=== PATIENT | male | born 1980 ===

== ENCOUNTER 2020-01-16 14:13 | Observation (INO) ==
[2020-01-16] MEDS ORDERED: DEXTROSE 10% 250 ML BAG IV PRN ×2 (15:27)
[2020-01-16] MEDS ORDERED: ACETAMINOPHEN 325 MG TABLET PO PRN (15:27)
[2020-01-16] MEDS ORDERED: GLUCAGON 1 MG VIAL IM PRN (15:27)
[2020-01-16] MEDS ORDERED: ONDANSETRON 4 MG/2 ML VIAL IV PRN (15:27)
[2020-01-16 15:50] LABS: Basophils # 0.1 10*3/uL (0.0-0.2); Basophils % 0.8 % (0.0-0.8); Eosinophils # 0.3 10*3/uL (0.0-0.87); Eosinophils % 3.2 % (0.00-10.9); Hematocrit 37.1 VOL% (42.0-52.0); Hemoglobin 12.2 GM/DL (14.0-18.0); Immature Granulocytes % 0.4 %; Immature Granulocytes Absolute 0.04 #; Lymphocytes # 2.1 10*3/uL (1.4-4.0); Lymphocytes % 22.3 % (21.2-54.2); Mean Corpuscular HGB Conc 32.9 GM/DL (32-36); Mean Corpuscular Volume 90.7 FL (87-102); Monocytes % 5.1 % (1.7-12.7); Neutrophils % 68.2 % (38.7-73.9); Platelet Count 226 T/CUMM (130-400); Red Blood Count 4.09 MC/CUMM (3.8-5.5); Red Cell Distribution Width 13.2 % (9.3-17.3); White Blood Count 9.2 T/CUMM (4-12)
[2020-01-16 16:10] LABS: Calcium 7.9 MG/DL (8.5-10.1); Osmolality,Calculated 277.2 MOS/KG (273-304)
[2020-01-16] MEDS: INSULIN REGULAR 100 UNIT/ML SUBCUT SCH ×2 (18:06→20:36)
[2020-01-17 07:00] LABS: Basophils # 0.1 10*3/uL (0.0-0.2); Basophils % 0.9 % (0.0-0.8); Eosinophils # 0.3 10*3/uL (0.0-0.87); Eosinophils % 2.9 % (0.00-10.9); Hematocrit 38.1 VOL% (42.0-52.0); Hemoglobin 12.8 GM/DL (14.0-18.0); Immature Granulocytes % 0.4 %; Immature Granulocytes Absolute 0.05 #; Lymphocytes # 2.5 10*3/uL (1.4-4.0); Lymphocytes % 22.2 % (21.2-54.2); Mean Corpuscular HGB Conc 33.6 GM/DL (32-36); Mean Corpuscular Volume 89.6 FL (87-102); Mean Platelet Volume 10.8 FL (9.6-12.0); Monocytes % 4.6 % (1.7-12.7); Platelet Count 248 T/CUMM (130-400); Red Blood Count 4.25 MC/CUMM (3.8-5.5); Red Cell Distribution Width 13.3 % (9.3-17.3); White Blood Count 11.4 T/CUMM (4-12)
[2020-01-17] MEDS ORDERED: LIDOCAINE 1%/EPI INJ 20 ML VIAL ONE (07:18)
[2020-01-17] MEDS ORDERED: HEPARIN 5,000 UNIT/1 ML VIAL ONE ×2 (07:18→09:18)
[2020-01-17] MEDS ORDERED: BUPIVACAINE MPF 0.25% 30 ML VIAL ONE (07:18)
[2020-01-17 07:40] LABS: Calcium 8.2 MG/DL (8.5-10.1); Osmolality,Calculated 278.1 MOS/KG (273-304)
[2020-01-17] MEDS ORDERED: CLINDAMYCIN INJ 900 MG in PREMIX 1 EACH IV ONE (08:23)
[2020-01-17] MEDS: INSULIN REGULAR 100 UNIT/ML SUBCUT SCH ×3 (08:45→18:09)
[2020-01-17] MEDS ORDERED: PANTOPRAZOLE 40 MG TABLET PO SCH (09:00)
[2020-01-17] MEDS ORDERED: TISSUE ADHESIVE 1 EACH APPLICATOR TOP ONE (10:19)
[2020-01-17] MEDS ORDERED: MEPERIDINE 25 MG/1 ML VIAL ONE (10:39)
[2020-01-17] MEDS ORDERED: ONDANSETRON 4 MG/2 ML VIAL ONE (10:39)
[2020-01-17] MEDS ORDERED: ONDANSETRON 4 MG/2 ML VIAL IV PRN (10:46)
[2020-01-17] MEDS ORDERED: MEPERIDINE 25 MG/1 ML VIAL IV PRN (10:46)
[2020-01-17] MEDS ORDERED: LOPERAMIDE 2 MG CAPSULE PO ONE (11:48)
[2020-01-17] MEDS ORDERED: LOPERAMIDE 2 MG CAPSULE PO PRN (12:10)
[2020-01-17] MEDS ORDERED: MIDAZOLAM 2 MG/2 ML VIAL ONE (12:26)
[2020-01-17] MEDS ORDERED: fentaNYL 100 MCG/2 ML VIAL ONE (12:26)
[2020-01-17] MEDS ORDERED: KETAMINE 500 MG/10 ML VIAL ONE (12:26)
[2020-01-17] MEDS ORDERED: SODIUM CHLORIDE 0.9% 250 ML IV ONE (12:27)
[2020-01-17] MEDS ORDERED: HEPARIN 10,000 UNIT/10 ML VIAL IV SCH (13:00)
[2020-01-17] MEDS ORDERED: SEVELAMER CARBONATE 800 MG TABLET PO SCH (16:30)
[2020-01-17 20:04] VITALS: BP 146/92
[2020-01-17] MEDS ORDERED: METOPROLOL TARTRATE 50 MG TABLET PO SCH (21:00)
[2020-01-17] MEDS ORDERED: GABAPENTIN 300 MG CAPSULE PO SCH (21:00)
[2020-01-18] MEDS ORDERED: lisinopriL 10 MG TABLET PO SCH (09:00)
[2020-01-18] MEDS ORDERED: calcitrioL 0.25 MCG CAPSULE PO SCH (09:00)
[2020-01-18] MEDS ORDERED: amLODIPine 10 MG TABLET PO SCH (09:00)
== END 2020-01-17 20:10 | disposition home or self-care (01) ==
LOC: N.ED 14:13 → N.EDINP 14:13 → SUATTDRO 15:27 → N.EDINP 16:11 → N.3E 16:27
PROVIDERS: ADMIT Internal Medicine; ATTEND Internal Medicine

== ENCOUNTER 2021-03-21 17:07 | Inpatient (IN) ==
[2021-03-21 18:07] LABS: Basophils # 0.1 10*3/uL (0.0-0.2); Basophils % 0.4 % (0.0-0.8); Hematocrit 38.1 VOL% (42.0-52.0); Hemoglobin 11.9 GM/DL (14.0-18.0); Immature Granulocytes % 1.1 %; Immature Granulocytes Absolute 0.14 #; Lymphocytes # 1.1 10*3/uL (1.4-4.0); Lymphocytes % 8.7 % (21.2-54.2); Mean Corpuscular HGB Conc 31.2 GM/DL (32-36); Mean Corpuscular Volume 95.5 FL (87-102); Mean Platelet Volume 10.6 FL (9.6-12.0); Monocytes % 5.3 % (1.7-12.7); NRBC # 0.07 10*3/uL; Neutrophils % 84.5 % (38.7-73.9); Platelet Count 295 T/CUMM (130-400); Red Blood Count 3.99 MC/CUMM (3.8-5.5); Red Cell Distribution Width 16.2 % (9.3-17.3); White Blood Count 12.9 T/CUMM (4-12)
[2021-03-21 18:50] LABS: Calcium 9.9 MG/DL (8.5-10.1); Osmolality,Calculated 291.4 MOS/KG (273-304)
[2021-03-21 18:55] LABS: Potassium 6.4 MMOL/L (3.5-5.1)
[2021-03-21] MEDS ORDERED: DOCUSATE SODIUM 100 MG CAPSULE PO PRN (19:56)
[2021-03-21] MEDS ORDERED: ONDANSETRON 4 MG/2 ML VIAL IV PRN (19:56)
[2021-03-21] MEDS ORDERED: DEXTROSE 50% 25 GM/50 ML VIAL IV PRN (19:56)
[2021-03-21] MEDS ORDERED: GLUCAGON 1 MG VIAL IM PRN (19:56)
[2021-03-21] MEDS ORDERED: ACETAMINOPHEN 325 MG TABLET PO PRN (19:56)
[2021-03-21] MEDS ORDERED: NICOTINE 21 MG/24 HR PATCH TRANSDERM PRN (19:56)
[2021-03-21] MEDS: INSULIN REGULAR 100 UNIT/ML SUBCUT SCH (22:31)
[2021-03-21] MEDS: HEPARIN 5,000 UNIT/1 ML VIAL SUBCUT SCH (22:31)
[2021-03-22] MEDS: MORPHINE 2 MG/1 ML SYRINGE IV PRN (01:33)
[2021-03-22 07:13] LABS: Calcium 9.2 MG/DL (8.5-10.1); Osmolality,Calculated 281.4 MOS/KG (273-304); Potassium 4.3 MMOL/L (3.5-5.1)
[2021-03-22] MEDS: HEPARIN 5,000 UNIT/1 ML VIAL SUBCUT SCH ×2 (08:34→20:27)
[2021-03-22] MEDS: PANTOPRAZOLE 40 MG TABLET PO SCH (08:34)
[2021-03-22] MEDS: INSULIN REGULAR 100 UNIT/ML SUBCUT SCH ×4 (11:34→20:27)
[2021-03-23 05:48] LABS: Basophils % 0.3 % (0.0-0.8); Eosinophils % 0.4 % (0.00-10.9); Hematocrit 33.8 VOL% (42.0-52.0); Immature Granulocytes % 0.7 %; Immature Granulocytes Absolute 0.07 #; Lymphocytes # 1.6 10*3/uL (1.4-4.0); Lymphocytes % 16.2 % (21.2-54.2); Mean Corpuscular HGB Conc 32.5 GM/DL (32-36); Mean Corpuscular Volume 92.1 FL (87-102); Mean Platelet Volume 10.6 FL (9.6-12.0); Monocytes % 9.5 % (1.7-12.7); NRBC # 0.05 10*3/uL; Neutrophils % 72.9 % (38.7-73.9); Platelet Count 267 T/CUMM (130-400); Red Blood Count 3.67 MC/CUMM (3.8-5.5); Red Cell Distribution Width 16.5 % (9.3-17.3)
[2021-03-23 06:39] LABS: Calcium 8.9 MG/DL (8.5-10.1); Osmolality,Calculated 281.1 MOS/KG (273-304); Potassium 3.9 MMOL/L (3.5-5.1)
[2021-03-23] MEDS: INSULIN REGULAR 100 UNIT/ML SUBCUT SCH ×4 (07:33→20:04)
[2021-03-23] MEDS: HEPARIN 5,000 UNIT/1 ML VIAL SUBCUT SCH ×2 (09:15→20:48)
[2021-03-23] MEDS: PANTOPRAZOLE 40 MG TABLET PO SCH (09:16)
[2021-03-23] MEDS: LOPERAMIDE 2 MG CAPSULE PO PRN (12:36)
[2021-03-23 12:59] LABS: PT Patient Result 11.3 SECS (10.5-12.0)
[2021-03-23] MEDS: MORPHINE 2 MG/1 ML SYRINGE IV PRN ×2 (13:44→20:48)
[2021-03-23] MEDS ORDERED: DEXTROSE 50% 25 GM/50 ML VIAL IV PRN (14:32)
[2021-03-24] MEDS: MORPHINE 2 MG/1 ML SYRINGE IV PRN ×5 (00:18→19:44)
[2021-03-24] MEDS: INSULIN REGULAR 100 UNIT/ML SUBCUT SCH ×4 (08:16→21:52)
[2021-03-24] MEDS: PANTOPRAZOLE 40 MG TABLET PO SCH (08:16)
[2021-03-24] MEDS: HEPARIN 5,000 UNIT/1 ML VIAL SUBCUT SCH ×2 (08:16→21:51)
[2021-03-24] MEDS ORDERED: MIDAZOLAM 2 MG/2 ML VIAL IV ONE (09:00)
[2021-03-24] MEDS ORDERED: SODIUM CHLORIDE 0.45% 1,000 ML IV SCH (09:00)
[2021-03-24] MEDS ORDERED: HEPARIN/NACL 0.9% 2 UNITS/ML 4,000 UNIT/2,000 ML BAG IV ONE (14:14)
[2021-03-24] MEDS ORDERED: fentaNYL 100 MCG/2 ML VIAL ONE (14:21)
[2021-03-24] MEDS ORDERED: fentaNYL 100 MCG/2 ML VIAL IV ONE (15:42)
[2021-03-24] MEDS ORDERED: DIAZEPAM 5 MG TABLET PO ONE (15:42)
[2021-03-24] MEDS: hydrALAZINE 20 MG/1 ML VIAL IV PRN (16:20)
[2021-03-25] MEDS: MORPHINE 2 MG/1 ML SYRINGE IV PRN ×3 (00:09→08:22)
[2021-03-25] MEDS: HEPARIN 5,000 UNIT/1 ML VIAL SUBCUT SCH (08:21)
[2021-03-25] MEDS: PANTOPRAZOLE 40 MG TABLET PO SCH (08:21)
[2021-03-25] MEDS ORDERED: CLINDAMYCIN INJ 900 MG/50 ML PREMIX IV ONE (08:39)
[2021-03-25] MEDS ORDERED: BUPIVACAINE MPF 0.25% 30 ML VIAL ONE (08:55)
[2021-03-25] MEDS ORDERED: LIDOCAINE 1%/EPI INJ 20 ML VIAL ONE (08:55)
[2021-03-25] MEDS ORDERED: lisinopriL 20 MG TABLET PO SCH (09:00)
[2021-03-25] MEDS ORDERED: LIDOCAINE 2% 5 ML VIAL ONE (09:02)
[2021-03-25] MEDS ORDERED: fentaNYL 100 MCG/2 ML VIAL ONE (09:02)
[2021-03-25] MEDS ORDERED: MIDAZOLAM 2 MG/2 ML VIAL ONE ×2 (09:02→10:28)
[2021-03-25] MEDS ORDERED: propofoL 200 MG/20 ML VIAL IV ONE ×2 (09:02→09:43)
[2021-03-25 09:17] LABS: Basophils % 0.5 % (0.0-0.8); Eosinophils # 0.1 10*3/uL (0.0-0.87); Eosinophils % 0.7 % (0.00-10.9); Hematocrit 35.6 VOL% (42.0-52.0); Hemoglobin 11.4 GM/DL (14.0-18.0); Immature Granulocytes % 0.5 %; Immature Granulocytes Absolute 0.04 #; Lymphocytes # 0.8 10*3/uL (1.4-4.0); Mean Corpuscular Volume 92.5 FL (87-102); Mean Platelet Volume 9.8 FL (9.6-12.0); Monocytes % 8.6 % (1.7-12.7); Neutrophils % 79.7 % (38.7-73.9); Platelet Count 289 T/CUMM (130-400); Red Blood Count 3.85 MC/CUMM (3.8-5.5); Red Cell Distribution Width 15.9 % (9.3-17.3); White Blood Count 8.3 T/CUMM (4-12)
[2021-03-25 09:31] LABS: Calcium 9.3 MG/DL (8.5-10.1); Osmolality,Calculated 281.2 MOS/KG (273-304); Potassium 4.8 MMOL/L (3.5-5.1)
[2021-03-25] MEDS: hydrALAZINE 20 MG/1 ML VIAL IV PRN (09:32)
[2021-03-25] MEDS: INSULIN REGULAR 100 UNIT/ML SUBCUT SCH ×3 (09:45→18:07)
[2021-03-25] MEDS: SODIUM CHLORIDE 0.9% 250 ML IV SCH ×2 (10:07→10:45)
[2021-03-25] MEDS ORDERED: PHENYLEPHRINE 1 MG/10 ML SYRINGE IV ONE (10:37)
[2021-03-25] MEDS ORDERED: SODIUM CHLORIDE 0.9% 250 ML IV ONE (10:47)
[2021-03-25 12:06] VITALS: BP 150/58
[2021-03-25] MEDS ORDERED: HEPARIN 10,000 UNIT/10 ML VIAL IV SCH (14:00)
[2021-03-25] MEDS: LOPERAMIDE 2 MG CAPSULE PO PRN (17:11)
[2021-03-26] MEDS ORDERED: lisinopriL 20 MG TABLET PO SCH (09:00)
== END 2021-03-25 18:24 | disposition home or self-care (01) | DRG 981 ==
LOC: EDUNIT# → EDBD → N.TELEN 17:07 → N.ED 17:07 → SUATTDRO 19:56 → N.ED 22:40 → N.TELEN 22:40
PROVIDERS: ADMIT Hospitalist; ATTEND Internal Medicine